=== PATIENT | male | born 1980 | race Asian ===

== ENCOUNTER 2016-05-28 14:40 | Emergency (ER) | payer OTHER ==
[2016-05-28 15:13] VITALS: BP 122/80
--- NOTE | 2016-05-28 15:28 | UC ---
Throat Pain/Nasal Chun HPI - HPI Summary HPI Summary: Fever, body aches, and ST starting 2 nights ago. Fever was worse at first, ST is getting worse now. 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 - History of Current Complaint Chief Complaint: UC Stated Complaint: SORE THROAT Time Seen by Provider: 05/28/16 15:00 Hx Obtained From: Patient Onset/Duration: Gradual Onset, Lasting Days Severity: Moderate Cough: None Associated Signs & Symptoms: Positive: Fever - Allergies/Home Medications Allergies/Adverse Reactions: Allergies Allergy/AdvReac Type Severity Reaction Status Date / Time No Known Allergies Allergy Verified 05/28/16 15:02 Home Medications: Home Medications Acetaminophen TAB* [Tylenol TAB*] 650 mg PO PRN 05/28/16 [History] Cefixime [Suprax] 1 tab 05/28/16 [History] Cholecalciferol [Vitamin D3] 1 tab PO WEEKLY 05/28/16 [History Confirmed ] Ibuprofen TAB* [Motrin TAB* 600 MG] 1 tab PO PRN 05/28/16 [History] PMH/Surg Hx/FS Hx/Imm Hx Previously Healthy: Yes - Surgical History Surgical History: None - Family History Known Family History: Positive: Hypertension - Social History Occupation: Employed Full-time Alcohol Use: Occasionally Substance Use Type: None Smoking Status (MU): Never Smoked Tobacco - Immunization History Most Recent Influenza Vaccination: 2015/2016 Review of Systems Constitutional: Negative Skin: Negative Eyes: Negative ENT: Sore Throat Respiratory: Negative Cardiovascular: Negative Gastrointestinal: Negative Genitourinary: Negative Motor: Negative Neurovascular: Negative Musculoskeletal: Negative Neurological: Negative Psychological: Negative All Other Systems Reviewed And Are Negative: Yes Physical Exam Triage Information Reviewed: Yes Appearance: Well-Appearing, No Pain Distress, Well-Nourished Vital Signs: Initial Vital Signs Temp 100.7 F 05/28/16 15:05 Pulse 96 05/28/16 15:05 Resp 18 05/28/16 15:05 BP 122/80 05/28/16 15:05 Pulse Ox 99 05/28/16 15:05 Vital Signs Reviewed: Yes Eye Exam: Normal Eyes: Positive: Conjunctiva Clear ENT: Positive: Hearing grossly normal, TMs normal, Tonsillar swelling, Tonsillar exudate Dental Exam: Normal Neck: Positive: Supple, Enlarged Nodes @ - tonsillar Respiratory Exam: Normal Respiratory: Positive: Chest non-tender, Lungs clear, Normal breath sounds, No respiratory distress, No accessory muscle use Cardiovascular: Positive: RRR - 90s on exam, No Murmur Musculoskeletal Exam: Normal Neurological Exam: Normal Psychological Exam: Normal Skin Exam: Normal Throat Pain/Nasal Course/Dx - Course Course Of Treatment: Pt comfortable with clinical dx of strep based on [facility] criteria, understands that further testing and treatment will be necessary if symptoms persist or worsen. - Differential Dx/Diagnosis Provider Diagnoses: strep tonsillitis, clinical diagnosis Discharge - Discharge Plan Condition: Stable Disposition: HOME Prescriptions: Amoxicillin (*) 875 mg PO BID #20 tab Patient Education Materials: Tonsillitis (ED) Additional Instructions: As we discussed, your symptoms are very suspicious for strep tonsillitis. Given your exposure to young people and the severity of your symptoms, we are treating your empirically. If you have new, worsening, or recurrent symptoms, please see your primary care provider or return here.
--- NOTE | 2016-05-28 15:31 | UC ---
Progress - Progress Note Progress Note: The patient was diagnosed as having angioedema by Dr. Pennington who initiated treatment. She asked that the patient remain for 30-45 minutes after her shift ended to make sure that he was not getting worse and hopefully improving. He was re-evaluated by me prior to discharge and he states that he feels like he has improved "a little bit."
== END 2016-05-28 15:46 | disposition home or self-care (01) ==
LOC: UCEAST 14:40
DX: J03.00 Acute streptococcal tonsillitis, unspecified (principal)
CPT/HCPCS: 99202; G0463